=== PATIENT | male | born 1995 | race Caucasian/White ===

== ENCOUNTER 2017-03-08 11:38 | Emergency (ER) | payer MEDICAID ==
[~2017-03-08] VITALS: Ht 152.4 cm; Wt 62.0 kg
[2017-03-08 11:40] VITALS: Ht 152.4 cm; Wt 62.0 kg
--- NOTE | 2017-03-08 12:16 | ERD ---
ER Documentation Chief Complaint Chief Complaint MOM THINKS HE HAS PAIN, WANTS TO HAVE CHECKED, RESTLESS X 2 DAYS HPI . The patient is a 21-year-old male, presenting to the ER because the mother thinks may he may have pain. He has history of cerebral palsy, intellectual disability, epilepsy and is unable to provide any history. He was seen by his physician 3 weeks ago who treated him for left otitis media with amoxicillin. He is eating well, does not have fever, cough, neck pain, vomiting, dysuria, diarrhea Past surgical history: None ROS All systems reviewed and are negative except as per history of present illness. Medications Home Meds Active Scripts Amoxicillin/Potassium Clav (Amox-Clav 875-125 mg Tablet) 875-125 mg Tab, 1 TAB PO BID for 7 Days, #14 TAB Prov:MAX PEREZ MD 03/08/17 Physical Exam Vitals Vital Signs Date Time Temp Pulse Resp B/P Pulse Ox O2 Delivery O2 Flow Rate FiO2 03/08/17 11:40 99.8 106 20 110/71 98 Physical Exam Const: No acute distress. Head: Atraumatic. Eyes: Normal Conjunctiva. ENT: Normal External Ears, Nose and Mouth.Left tympanic membrane is bulging and erythematous, right tympanic membrane obscured with moderate amount of cerumen Neck: Full range of motion. No meningismus. Resp: Clear to auscultation bilaterally. Cardio: Regular rate and rhythm. Abd: Soft, non distended, normal bowel sounds, non tender. Skin: No petechiae or rashes. Back: No midline or flank tenderness. Ext: No cyanosis, or edema. Neur: Awake and alert. No focal deficit Psych: Normal Mood and Affect. Result Diagram: 03/08/17 1225 03/08/17 1225 Results 24 hrs Laboratory Tests Test 03/08/17 12:25 White Blood Count 6.210^3/ul Red Blood Count 5.3610^6/ul Hemoglobin 15.9g/dl Hematocrit 47.2% Mean Corpuscular Volume 88.1fl Mean Corpuscular Hemoglobin 29.7pg Mean Corpuscular Hemoglobin Concent 33.7g/dl Red Cell Distribution Width 12.9% Platelet Count 91228^3/UL Mean Platelet Volume 11.1fl Neutrophils % 65.1% Lymphocytes % 23.2% Monocytes % 10.3% Eosinophils % 0.6% Basophils % 0.5% Nucleated Red Blood Cells % 0.0/100WBC Neutrophils # 4.110^3/ul Lymphocytes # 1.410^3/ul Monocytes # 0.610^3/ul Eosinophils # 0.010^3/ul Basophils # 0.010^3/ul Nucleated Red Blood Cells # 0.010^3/ul Sodium Level 144mmol/L Potassium Level 3.7mmol/L Chloride Level 105mmol/L Carbon Dioxide Level 22mmol/L Anion Gap 21 Blood Urea Nitrogen 10mg/dl Creatinine 0.86mg/dl Glucose Level 107mg/dl Calcium Level 9.4mg/dl Procedures/[place] [id number] Radiology Main Line: [phone] DIAGNOSTIC IMAGING REPORT Patient: ADELE HUMPHRIES : 1995 Age: 21 Sex: M MR #: [id number] DOS: 03/08/17 1221 Ordering MD: MAX PEREZ MD Location: E/R Room/Bed: PROCEDURE: XR Chest. CLINICAL INDICATION: Chest Pain. TECHNIQUE: Single frontal view of the chest was obtained COMPARISON: None FINDINGS: The heart and mediastinum are within normal limits. The lungs are clear. There is no pleural effusion or pneumothorax. The bones and soft tissue show no acute change. IMPRESSION: No definite abnormalities are identified. RPTAT:AAJJ Physician Brenda Date Time Electronically viewed and signed by Physician Brenda on 03/08/2017 13: 21 MC/ CC: MXA PEREZ MD MEDICAL MAKING DECISION: The patient is a 21-year-old male, presenting with acute left otitis media. He is stable for outpatient follow-up The differential diagnoses considered include but are not limited to pneumonia, cystitis, bronchitis Departure Condition: Good Comments He was discharged with Augmentin X I discussed the findings with the patient. I advised the patient to follow-up with the primary physician in about 1-2 days, sooner if needed and return if any concern. Disclaimer: Inadvertent spelling and grammatical errors are likely due to EHR/ dictation software use and do not reflect on the overall quality of patient care. Also, please note that the electronic time recorded on this note does not necessarily reflect the actual time of the patient encounter. MAX PEREZ MD Mar 08, 2017 12:16
[2017-03-08 12:46] LABS: BASOPHILS % 0.5 % (0.0-2.0); EOSINOPHILS % 0.6 % (0.0-7.0); HEMATOCRIT 47.2 % (42.0-52.0); HEMOGLOBIN 15.9 g/dl (14.0-18.0); LYMPHOCYTES # 1.4 10^3/ul (0.8-2.9); LYMPHOCYTES % 23.2 % (18.0-55.0); MEAN CORPUSCULAR HEMOGLOBIN 29.7 pg (29.0-33.0); MEAN CORPUSCULAR HGB CONC 33.7 g/dl (32.0-37.0); MEAN CORPUSCULAR VOLUME 88.1 fl (72.0-104.0); MEAN PLATELET VOLUME 11.1 fl (7.4-10.4); MONOCYTE # 0.6 10^3/ul (0.3-0.9); MONOCYTES % 10.3 % (0.0-13.0); NEUTROPHIL # 4.1 10^3/ul (1.6-7.5); NEUTROPHILS % 65.1 % (30.0-74.0); PLATELET COUNT 252 10^3/UL (140-415); RED BLOOD COUNT 5.36 10^6/ul (4.70-6.10); RED CELL DISTRIBUTION WIDTH 12.9 % (11.5-14.5); WHITE BLOOD COUNT 6.2 10^3/ul (4.8-10.8)
--- NOTE | 2017-03-08 13:21 | RADRPT ---
PROCEDURE: XR Chest. CLINICAL INDICATION: Chest Pain. TECHNIQUE: Single frontal view of the chest was obtained COMPARISON: None FINDINGS: The heart and mediastinum are within normal limits. The lungs are clear. There is no pleural effusion or pneumothorax. The bones and soft tissue show no acute change. IMPRESSION: No definite abnormalities are identified. RPTAT:AAJJ Aden Marquez Physician Date Time Electronically viewed and signed by Aden Marquez Physician on 03/08/2017 13:21 /
[2017-03-08 13:23] LABS: CALCIUM 9.4 mg/dl (8.4-10.2); CREATININE 0.86 mg/dl (0.61-1.24); POTASSIUM 3.7 mmol/L (3.5-5.1)
[2017-03-08] MEDS ORDERED: AMOX1TAB10 PO (13:41)
[2017-03-08] MEDS ORDERED: SOD CHLORIDE 0.9% 1,000 ML IV ONE (14:00)
[2017-03-08] MEDS ORDERED: LORAZEPAM 2 MG INJ IV ONE (14:00)
[2017-03-08 14:44] VITALS: BP 100/58; PULSE 88; RESP 20; TEMP 98.7
== END 2017-03-08 14:46 | disposition home or self-care (01) ==
LOC: E/R 11:38
DX: H66.92 Otitis media, unspecified, left ear (principal); R07.9 Chest pain, unspecified
CPT/HCPCS: 36415; 71010; 80048; 85025; 96374; J2060; J7030; Z7502